=== PATIENT | female | born 1995 | race Caucasian/White ===

== ENCOUNTER 2020-07-19 21:05 | Emergency (ER) | payer SELFPAY ==
[~2020-07-19] VITALS: Ht 162.6 cm; Wt 152.0 kg
--- NOTE | 2020-07-19 21:19 | NUR ---
PT BIB [facility] S/P [facility] AFTER DRINKING TONIGHT. PT TRIPPED ON A HOLE ON THE CURB. C/O ABRASION TO L KNEE, LOWER BACK PAIN, L KNEECAP DEVIATED LATERALLY WHICH PT REPORTS IS CHRONIC BUT WORSE THAN USUAL TONIGHT, AND LEFT FOOT ERYTHEMATOUS AND HOT. PT STATES SHE IS CONCEERNED FOR CELLULITIS. PT HAS BEEN FEELING COLD BUT NO FEVER/CHILLS/SOB. ION ER BED 14.
[2020-07-19] MEDS ORDERED: IV NS 0.9% 1,000 ML BAG IV ONE (21:30)
--- NOTE | 2020-07-19 22:02 | NUR ---
PT VERY HARD STICK. UNABLE TO OBTAIN IV AFTER 3 ATTEMPTS BY THIS RN, ANOTHER RN ABLE TO OBTAIN IV BUT NO BLOOD ABLE TO DRAW OFF LINE. PHLEBOTOMISTS AT BEDSIDE FOR LAB DRAW.
[2020-07-19 22:40] LABS: BASOPHILS % (AUTO) 0.3 % (0.0-2.0); EOSINOPHILS % (AUTO) 1.7 % (0.0-6.0); HEMATOCRIT 35 % (33-45); LYMPHOCYTES # (AUTO) 1.6 /CMM (0.8-4.8); LYMPHOCYTES % (AUTO) 26.3 % (20.0-44.0); MEAN CORPUSCULAR HGB CONC 32 g/dl (31.0-36.0); MEAN CORPUSCULAR VOLUME 80 fL (82-100); MONOCYTES # (AUTO) 0.6 /CMM (0.1-1.30); MONOCYTES % (AUTO) 9.8 % (2.0-12.0); NEUTROPHILS # (AUTO) 3.8 /CMM (1.8-8.9); NEUTROPHILS % (AUTO) 61.9 % (43.0-81.0); PLATELET COUNT (AUTO) 315 /CMM (150-450); RED BLOOD CELL COUNT(AUTO) 4.38 MIL/uL (4.0-5.2); WHITE BLOOD COUNT (AUTO) 6.1 K/uL (4.3-11.0)
[2020-07-19 22:58] LABS: CALCIUM, SERUM 8.6 mg/dL (8.5-10.1); CREATININE 0.7 mg/dL (0.6-1.3)
[2020-07-19 23:04] LABS: ALBUMIN 3.3 g/dL (3.4-5.0); BILIRUBIN,DIRECT 0.1 mg/dL (0.0-0.2); BILIRUBIN,TOTAL 0.3 mg/dL (0.2-1.0); TOTAL PROTEIN, SERUM 6.9 g/dL (6.4-8.2)
--- NOTE | 2020-07-19 23:20 | NUR ---
PT UNABLE TO PROVIDE URINE SAMPLE AT THIS TIME. MD GALO
--- NOTE | 2020-07-20 00:12 | NUR ---
IV removed. Catheter intact and site benign. Pressure and 4x4 applied to site. No bleeding noted.
--- NOTE | 2020-07-20 00:15 | NUR ---
Patient discharged to home in stable condition. Written and verbal after care instructions given. Patient verbalizes understanding of instruction and RX. Pt ambulated with steady gait,. vss.
[2020-07-20 00:53] VITALS: BP 132/79
== END 2020-07-20 00:53 | disposition home or self-care (01) ==
LOC: EDBD → ER 21:08
DX: M24.462 Recurrent dislocation, left knee (principal); J45.909 Unspecified asthma, uncomplicated; F41.9 Anxiety disorder, unspecified; F90.9 Attention-deficit hyperactivity disorder, unspecified type; G62.9 Polyneuropathy, unspecified; F17.200 Nicotine dependence, unspecified, uncomplicated; Z98.890 Other specified postprocedural states; Z59.0 Homelessness; Z88.8 Allergy status to other drugs, medicaments and biological substances; W01.0XXA Fall on same level from slipping, tripping and stumbling without subsequent striking against object, initial encounter; Y93.89 Activity, other specified; Y92.89 Other specified places as the place of occurrence of the external cause; Y99.8 Other external cause status
CPT/HCPCS: 71045; 73564; 80048; 80076; 82550; 83605; 85025; 85730; 87040 ×2; 96360; 99284; J7030; 36415

== ENCOUNTER 2020-07-20 05:23 | Emergency (ER) | payer SELFPAY ==
[~2020-07-20] VITALS: Ht 162.6 cm; Wt 152.0 kg
--- NOTE | 2020-07-20 05:35 | NUR ---
PT AAOX4. BIBRA DENIES ANY MEDICAL COMPLAINTS. PT REQUESTING TO SEE A AIRFRAME AND POWER PLANT MECHANIC REGARDING PLACEMENT. PT DENIES SI/HI. VSS. PT WAS SEEN HERE AND WAS TOLD TO BE IN THE WAITING ROOM TO WAIT FOR AIRFRAME AND POWER PLANT MECHANIC. PT HAD LEFT THE WAITING ROOM BUT DECIDED TO COME BACK. NO ACUTE DISTRESS NOTED.
[2020-07-20 05:37] VITALS: BP 135/87
--- NOTE | 2020-07-20 08:45 | NUR ---
8:35am Nursing Project Coordinator consult requested by ED RN Lana. Per RN note, patient was seen on 07/19 at [facility] ED after tripping and falling with complaints to her left knee. Patient was discharged on 07/19 and patient returned 07/20 for social service consult. Patient is a 24 year-old female. SW spoke with the patient, patient is alert and orientedx4, patient looks disheveled and unkept. Patient reports to be homeless. Patient reported that she had been staying with her boyfriend in [place] and per patient He has been doing something, but I do not want to say what it is because I am not a snitch. SW asked the patient if she has concerns for her safety. Patient reported that she does feel unsafe but is not comfortable providing more details. Patient reported that she is originally from [place], [place] and moved to [place] with her boyfriend. Patient now wants to return to [place] to return to family. SW asked the patient if she would like this SW to contact family or friends in [place] to help set a plan in place. Patient reports that no one in [place] can help. Patient does report alcohol and marijuana use but denies other drug use. Patient denies history of mental illness. Patient denies visual and auditory hallucinations. Patient denies suicidal and homicidal ideation. Patient requested breakfast. SW to inform ED Staff to provide breakfast for the patient. SW assisted patient with exploring patients needs for resources. SW assisted patient with identifying resources in the community that she can contact if she feels unsafe. Nursing Project Coordinator provided the patient with homeless resources packet including the following information: Substance Abuse resources provided included: [facility] Substance Abuse Self-Helpline ([facility]) ; [facility]LP [address] [facility] [place] [id number] ; [facility] [address] [facility] [address] ; [facility] [address] [facility] [address] ; [facility] [address] [facility] [address] ; [facility] [address] [facility] [place] [address] ; [facility] [address] [facility] [id number] ; [facility] Substance Abuse Helpline([facility] ; [facility] ; [facility] [place]; [facility] [place]; [facility] [place]; [facility] Daljit Baker; [facility]; [place] [facility]; [facility]; [facility], [facility] [place]; Alcoholics Anonymous -SFV; Xf-Hbpq-Fcrftzi ; Marijuana Anonymous -SFV; Narcotics Anonymous www.na.org. Year-round shelters : [place] [address] [id number] ; [facility] [place] [address] [place] [address]; [place] [facility] [address] [facility]. [facility] [id number] Hygiene: [facility]: [address] [place] [address] [place] ; [facility] [address] [facility] ; [facility] [address] Daljit [address] . Food Resources: [place] [facility] at [facility]- [address] [place]; Meet Each Need wit [facility] ([facility]) [address] [place]; [facility] [address] [facility]; [facility] 3895 [facility] [place]. Mental Health resources provided: [facility] [address] [place], [place] [address] ; [facility], [facility]. [address] [facility] [address], [place] [address] ; [facility] [address] [place] [address] ; [facility] [place] [address]
--- NOTE | 2020-07-20 08:45 | NUR ---
KATIE DOWNING WITH PATIENT FOR EVAL
== END 2020-07-20 10:25 | disposition home or self-care (01) ==
LOC: ER 05:25
DX: Z02.89 Encounter for other administrative examinations (principal); J45.909 Unspecified asthma, uncomplicated; Z98.890 Other specified postprocedural states; Z88.8 Allergy status to other drugs, medicaments and biological substances; Z59.0 Homelessness

== ENCOUNTER 2020-08-17 03:08 | Emergency (ER) | payer SELFPAY ==
[~2020-08-17] VITALS: Ht 162.6 cm; Wt 149.7 kg
--- NOTE | 2020-08-17 03:10 | NUR ---
PT AAOX4. BIBRA C/O LLQ PAIN X1. VSS. PT PLACED IN BED 11 ON MONITOR AND PULSE OX.
--- NOTE | 2020-08-17 03:12 | NUR ---
DR BROWN AT [facility] SIDE
--- NOTE | 2020-08-17 04:12 | NUR ---
US AT BEDSIDE
--- NOTE | 2020-08-17 04:37 | NUR ---
Patient discharged to home in stable condition. Written and verbal after care instructions given. Patient verbalizes understanding of instruction and rx. Pt ambulated with steady gait.
[2020-08-17 04:38] VITALS: BP 143/79
== END 2020-08-17 04:39 | disposition home or self-care (01) ==
LOC: ER 03:09
DX: L03.116 Cellulitis of left lower limb (principal); J45.909 Unspecified asthma, uncomplicated; G62.9 Polyneuropathy, unspecified; F41.9 Anxiety disorder, unspecified; F17.200 Nicotine dependence, unspecified, uncomplicated; F90.9 Attention-deficit hyperactivity disorder, unspecified type; Z98.890 Other specified postprocedural states; Z88.8 Allergy status to other drugs, medicaments and biological substances; Z59.0 Homelessness
CPT/HCPCS: 93971-TC

== ENCOUNTER 2020-10-22 17:33 | Emergency (ER) | payer MEDICAID, OTHER ==
[~2020-10-22] VITALS: Ht 162.6 cm; Wt 149.7 kg
--- NOTE | 2020-10-22 17:54 | NUR ---
CALLED POISON CONTROL [phone] START WITH ACTIVATED SARA. EKG, IF QR > 120 GIVE SODIUM BICARB, IF QTC > 500 GIVE MAGNESIUM 1-2 MG. CHECK LEVELS FOR TYLENOL AND SALICYLATES. INITIATE SEIZURE PRECAUTION. BENZODIAZEPINE IF NEEDED.
[2020-10-22] MEDS ORDERED: CHARCOAL/SORBITOL SOLUTION 25 G/120 ML TUBE ONE (17:56)
[2020-10-22] MEDS ORDERED: ACTIVATED CHARCOAL 25 GM/120 ML TUBE PO ONE (18:00)
--- NOTE | 2020-10-22 18:28 | NUR ---
ARLET FROM THE STREET TO ER E BED 13. AAOX4. NOT IN RESP DISTRESS. AMBULATORY. CAME IN FOR SUICIDAL ATTEMPT BY TAKING 20 PILLS OF ATARAX 25MG. PT WAS FOUND WITH A LETTER SAYING TIANNAE TI HER BOYFRIEND. WHEN ASKED, PT DENIED THAT SHE IS GOING TO KILL HERSELF. SHE VERBALIZED THAT SHE DID THAT A CRY FOR HELP. PT VERBALIZED THAT SHE IS FEELING HOPELESS BECAUSE OF HER BORDERLINE PERSONALITY DISORDER. JEN KHAN WAS AT THE BEDSIDE FOR EVAL. ORDERS RECEIVED, NOTED AND CARRIED OUT. POISON CINTROL WAS CALLED. PT IS ON MONITOR
[2020-10-22 18:38] LABS: BASOPHILS # (AUTO) 0.1 /CMM (0.0-0.2); BASOPHILS % (AUTO) 0.8 % (0.0-2.0); EOSINOPHILS % (AUTO) 1.3 % (0.0-6.0); HEMATOCRIT 40 % (33-45); HEMOGLOBIN 12.7 g/dL (11.5-14.8); LYMPHOCYTES # (AUTO) 1.5 /CMM (0.8-4.8); MEAN CORPUSCULAR HGB CONC 32 g/dl (31.0-36.0); MEAN CORPUSCULAR VOLUME 82 fL (82-100); MONOCYTES # (AUTO) 0.4 /CMM (0.1-1.30); MONOCYTES % (AUTO) 5.7 % (2.0-12.0); NEUTROPHILS # (AUTO) 4.9 /CMM (1.8-8.9); NEUTROPHILS % (AUTO) 70.2 % (43.0-81.0); PLATELET COUNT (AUTO) 397 /CMM (150-450); RED BLOOD CELL COUNT(AUTO) 4.84 MIL/uL (4.0-5.2)
[2020-10-22 18:55] LABS: CARBON DIOXIDE 27 mmol/L (21-32); CHLORIDE 105 mmol/L (98-107); CREATININE 0.8 mg/dL (0.6-1.3); GLUCOSE 81 mg/dL (74-106); POTASSIUM 4.1 mmol/L (3.5-5.1); SODIUM SERUM 140 mmol/L (136-145); UREA NITROGEN, BLOOD 12 mg/dL (7-18)
[2020-10-22 19:04] LABS: ALANINE AMINOTRANSFERASE 38 U/L (12-78); ALBUMIN 3.5 g/dL (3.4-5.0); ALCOHOL, BLOOD < 3 mg/dL (0-0); ALKALINE PHOSPHATASE 75 U/L (46-116); ASPARTATE AMINOTRANSFERASE 27 U/L (15-37); BILIRUBIN,DIRECT 0.1 mg/dL (0.0-0.2); BILIRUBIN,TOTAL 0.2 mg/dL (0.2-1.0)
[2020-10-22 19:05] LABS: ACETAMINOPHEN 0 ug/ml (10-30)
--- NOTE | 2020-10-22 19:06 | NUR ---
PATIENT NOT ABLE TO PROVIDE URINE SAMPLE AT THIS TIME. MADE AWARE
--- NOTE | 2020-10-22 20:05 | NUR ---
UNABLE TO PROVIDE URINE SAMPLE
[2020-10-22 22:15] LABS: BILIRUBIN,URINE Negative (NEGATIVE); COLOR,URINE YELLOW (YELLOW); LEUKOCYTE ESTERASE ,URINE Small (NEGATIVE); NITRITE, URINE Negative (NEGATIVE); PROTEIN,URINE Negative (NEGATIVE); UGLUCOSE Negative (NEGATIVE); UROBILINOGEN,URINE 0.2 EU/dL (0.2)
[2020-10-22 22:33] LABS: BACTERIA,URINE 3+ /HPF (None Seen)
[2020-10-22 22:34] LABS: SQUAMOUS EPITHELIAL CELL,UR Few /HPF (None Seen)
[2020-10-22] MEDS ORDERED: CEPHALEXIN MONOHYDRATE 500 MG CAPSULE PO ONE ×2 (23:00→23:08)
--- NOTE | 2020-10-22 23:18 | NUR ---
[facility]. RECOMMENDED TO DO ANOTHER SALICYLTE LEVEL
--- NOTE | 2020-10-23 04:37 | NUR ---
REMAINS ASLEEP, VSS.
--- NOTE | 2020-10-23 06:45 | NUR ---
IV removed. Catheter intact and site benign. Pressure and 4x4 applied to site. No bleeding noted.
--- NOTE | 2020-10-23 06:46 | NUR ---
Patient discharged to home in stable condition. Written and verbal after care instructions given. Patient verbalizes understanding of instruction and RX. Pt evaluated by crisis team.
[2020-10-23 06:57] VITALS: BP 117/81
== END 2020-10-23 06:57 | disposition home or self-care (01) ==
LOC: ER 17:37
DX: T43.592A Poisoning by other antipsychotics and neuroleptics, intentional self-harm, initial encounter (principal); Y92.488 Other paved roadways as the place of occurrence of the external cause; R45.851 Suicidal ideations; F19.10 Other psychoactive substance abuse, uncomplicated; F15.10 Other stimulant abuse, uncomplicated; F12.10 Cannabis abuse, uncomplicated; N39.0 Urinary tract infection, site not specified; Z59.0 Homelessness; Z20.822 Contact with and (suspected) exposure to COVID-19; F31.9 Bipolar disorder, unspecified; G62.9 Polyneuropathy, unspecified; F90.9 Attention-deficit hyperactivity disorder, unspecified type; J45.909 Unspecified asthma, uncomplicated; F41.9 Anxiety disorder, unspecified; Z98.890 Other specified postprocedural states; R94.31 Abnormal electrocardiogram [ECG] [EKG]
CPT/HCPCS: 36415; 80048; 80076; 80299; 80307; 80320; 81001; 83735; 84703; 85025; 87086; 87426; 93005; 99285; C9803; G0480

== ENCOUNTER 2020-12-21 16:13 | Emergency (ER) | payer MEDICAID ==
[~2020-12-21] VITALS: Ht 162.6 cm; Wt 145.6 kg
[2020-12-21 16:15] VITALS: BP 126/78
[2020-12-21] MEDS ORDERED: ACETAMINOPHEN ES 500 MG TABLET PO ONE (16:30)
[2020-12-21 16:35] LABS: BILIRUBIN,URINE Negative (NEGATIVE); COLOR,URINE YELLOW (YELLOW); LEUKOCYTE ESTERASE ,URINE Small (NEGATIVE); NITRITE, URINE Negative (NEGATIVE); PH,URINE 5.5 (5.0-8.0); PROTEIN,URINE Negative (NEGATIVE); UGLUCOSE Negative (NEGATIVE); UROBILINOGEN,URINE 0.2 EU/dL (0.2)
[2020-12-21 17:10] LABS: BACTERIA,URINE 1+ /HPF (None Seen); RBC,URINE NONE SEEN /HPF (0-2); SQUAMOUS EPITHELIAL CELL,UR Few /HPF (None Seen)
[2020-12-21] MEDS ORDERED: CEPH500C2 PO (17:15)
[2020-12-21] MEDS ORDERED: ACETAMINOPHEN ES 500 MG TABLET ONE (17:37)
== END 2020-12-21 17:37 | disposition home or self-care (01) ==
LOC: ER 16:15
DX: N39.0 Urinary tract infection, site not specified (principal); M54.5 Low back pain; G62.9 Polyneuropathy, unspecified; J45.909 Unspecified asthma, uncomplicated; F90.9 Attention-deficit hyperactivity disorder, unspecified type; F17.200 Nicotine dependence, unspecified, uncomplicated; Z98.890 Other specified postprocedural states; Z88.8 Allergy status to other drugs, medicaments and biological substances; Z59.0 Homelessness; Z79.899 Other long term (current) drug therapy
CPT/HCPCS: 81001; 84703-TC; 87086-TC

== ENCOUNTER 2020-12-24 10:23 | Emergency (ER) | payer MEDICAID ==
[~2020-12-24] VITALS: Ht 167.6 cm; Wt 144.2 kg
[~2020-12-24 10:23] MED LIST: CEPH500C2 PO
--- NOTE | 2020-12-24 10:23 | NUR ---
PT BIB PD C/O ANXIETY ATTACK. PT IS AAOX4, NOT IN RESPIRATORY DISTRESS, HOOKED TO SECOND TIME WORKER, KEPT RESTED AND COMFORTABLE. WILL CONTINUE TO MONITOR.
--- NOTE | 2020-12-24 10:56 | NUR ---
PT SEEN AND EXAMINED BY
--- NOTE | 2020-12-24 11:04 | NUR ---
ER PHLEB AT BEDSIDE FOR BLOOD DRAW.
--- NOTE | 2020-12-24 11:24 | NUR ---
CHAINSTITCH HEMMER AT BEDSIDE FOR ULTRASOUND.
[2020-12-24 11:54] LABS: BASOPHILS % (AUTO) 0.4 % (0.0-2.0); EOSINOPHILS % (AUTO) 0.7 % (0.0-6.0); HEMATOCRIT 41 % (33-45); HEMOGLOBIN 13.1 g/dL (11.5-14.8); LYMPHOCYTES % (AUTO) 28.9 % (20.0-44.0); MEAN CORPUSCULAR HGB CONC 32 g/dl (31.0-36.0); MEAN CORPUSCULAR VOLUME 83 fL (82-100); MONOCYTES # (AUTO) 0.4 /CMM (0.1-1.30); MONOCYTES % (AUTO) 6.2 % (2.0-12.0); NEUTROPHILS # (AUTO) 4.3 /CMM (1.8-8.9); NEUTROPHILS % (AUTO) 63.8 % (43.0-81.0); PLATELET COUNT (AUTO) 334 /CMM (150-450); RED BLOOD CELL COUNT(AUTO) 4.92 MIL/uL (4.0-5.2); WHITE BLOOD COUNT (AUTO) 6.8 K/uL (4.3-11.0)
[2020-12-24 12:02] LABS: CALCIUM, SERUM 8.5 mg/dL (8.5-10.1); CARBON DIOXIDE 25 mmol/L (21-32); CHLORIDE 106 mmol/L (98-107); CREATININE 0.7 mg/dL (0.6-1.3); GLUCOSE 89 mg/dL (74-106); POTASSIUM 4.3 mmol/L (3.5-5.1); SODIUM SERUM 141 mmol/L (136-145); UREA NITROGEN, BLOOD 12 mg/dL (7-18)
--- NOTE | 2020-12-24 14:06 | NUR ---
Patient discharged in custody in stable condition. Written and verbal after care instructions given. Patient verbalizes understanding of instruction.
[2020-12-24 14:07] VITALS: BP 129/74
== END 2020-12-24 14:07 ==
LOC: ER 10:26
DX: O26.891 Other specified pregnancy related conditions, first trimester (principal); O99.111 Other diseases of the blood and blood-forming organs and certain disorders involving the immune mechanism complicating pregnancy, first trimester; R07.89 Other chest pain; R79.1 Abnormal coagulation profile; R00.1 Bradycardia, unspecified; J45.909 Unspecified asthma, uncomplicated; F41.9 Anxiety disorder, unspecified; F10.10 Alcohol abuse, uncomplicated; F17.200 Nicotine dependence, unspecified, uncomplicated; Y90.9 Presence of alcohol in blood, level not specified; Z32.01 Encounter for pregnancy test, result positive; Z86.711 Personal history of pulmonary embolism; Z59.0 Homelessness; Z98.890 Other specified postprocedural states; Z88.8 Allergy status to other drugs, medicaments and biological substances; Z79.899 Other long term (current) drug therapy; Z3A.01 Less than 8 weeks gestation of pregnancy
CPT/HCPCS: 36415; 71045-TC; 80048-TC; 84484-TC; 84702-TC; 85025-TC; 85378-TC; 85730-TC; 93971-TC

== ENCOUNTER 2020-12-24 17:51 | Emergency (ER) | payer OTHER, MEDICAID ==
[~2020-12-24] VITALS: Ht 167.6 cm; Wt 136.5 kg
--- NOTE | 2020-12-24 17:51 | NUR ---
PT BIBRA AND [employer] FROM [facility] C/O SEIZURE LIKE MOVEMENT PER EMS. PT IS AAOX4, NOT IN RESPIRATORY DISTRESS, V/S STABLE, KEPT RESTED AND COMFORTABLE. WILL CONTINUE TO MONITOR.
--- NOTE | 2020-12-24 18:02 | NUR ---
SEEN AND EXAMINED BY .
--- NOTE | 2020-12-24 18:10 | NUR ---
IV LINE ESTABLISHED BY
[2020-12-24] MEDS ORDERED: IV NS 0.9% 250 ML IV ONE (18:19)
[2020-12-24] MEDS ORDERED: IOHEXOL-350 100 ML VIAL IV ONE (18:19)
--- NOTE | 2020-12-24 19:15 | NUR ---
CALLED [facility] [phone] DR. STEELE IS READING
[2020-12-24] MEDS ORDERED: LEVETIRACETAM (250 MG) 250 MG TABLET PO ONE ×2 (20:00→20:01)
--- NOTE | 2020-12-24 20:31 | NUR ---
Patient discharged to home in stable condition. Written and verbal after care instructions given. Patient verbalizes understanding of instruction.
[2020-12-24 20:32] VITALS: BP 123/82
--- NOTE | 2020-12-24 20:32 | NUR ---
PATIENT NOW IN CUSTODY OF KELI
== END 2020-12-24 20:32 ==
LOC: ER 17:55
DX: O99.350 Diseases of the nervous system complicating pregnancy, unspecified trimester (principal); R56.9 Unspecified convulsions; O99.419 Diseases of the circulatory system complicating pregnancy, unspecified trimester; R07.89 Other chest pain; O99.519 Diseases of the respiratory system complicating pregnancy, unspecified trimester; J45.909 Unspecified asthma, uncomplicated; O99.340 Other mental disorders complicating pregnancy, unspecified trimester; F41.9 Anxiety disorder, unspecified; F90.9 Attention-deficit hyperactivity disorder, unspecified type; Z98.890 Other specified postprocedural states; Z88.8 Allergy status to other drugs, medicaments and biological substances; Z59.0 Homelessness; Z3A.00 Weeks of gestation of pregnancy not specified
CPT/HCPCS: 70450; 71275; 99285; J7050; Q9967